=== PATIENT | male | born 1970 | race Caucasian/White ===

== ENCOUNTER 2020-01-10 22:03 | Emergency (ER) | payer BC ==
[~2020-01-10] VITALS: Ht 182.9 cm; Wt 93.4 kg
[~2020-01-10 22:03] MED LIST: APAP500; ASPIR 8181 MG PO; ASPIRIN325 PO; ATORVASTATIN CA40 MG PO; CARDIZEM CD240 MG PO; EFFIENT10 MG PO; NEXIUM40 MG PO; NITROGLYCERIN0.4 MG SUBLING; NORCO 5-325 TA1 EACH PO; PLAVIX 75 MG TA75 M1 PO; TOPROL XL50 MG PO; ZETIA10 MG PO; ZOFRAN4 MG PO
[2020-01-10] MEDS ORDERED: ASA81BEC PO (22:17)
[2020-01-10 23:36] VITALS: BP 140/80
== END 2020-01-10 23:37 | disposition home or self-care (01) ==
LOC: M.ERS 22:03
DX: S61.217A Laceration without foreign body of left little finger without damage to nail, initial encounter (principal); I25.10 Atherosclerotic heart disease of native coronary artery without angina pectoris; E78.5 Hyperlipidemia, unspecified; Z87.442 Personal history of urinary calculi; Z95.5 Presence of coronary angioplasty implant and graft; Z88.8 Allergy status to other drugs, medicaments and biological substances; W26.8XXA Contact with other sharp object(s), not elsewhere classified, initial encounter; Y93.89 Activity, other specified; Y92.89 Other specified places as the place of occurrence of the external cause; Y99.8 Other external cause status